=== PATIENT | male | born 1945 | race American Indian/Alaskan Native ===

== ENCOUNTER 2018-07-21 10:55 | Day surgery (SDC) | payer BC ==
[~2018-07-21 10:55] MED LIST: IOPIDINE ONE; MYDRIACYL ONE; NEOFRIN ONE
[2018-07-21] MEDS ORDERED: MYDRIACYL OD ONE (11:45)
[2018-07-21] MEDS ORDERED: IOPIDINE OD ONE ×2 (11:45→12:29)
[2018-07-21] MEDS ORDERED: NEOFRIN OD ONE (11:45)
[2018-07-21 12:10] VITALS: BP 143/78
== END 2018-07-21 12:32 | disposition home or self-care (01) ==
LOC: OR 10:55
PROVIDERS: ATTEND Specialist
DX: H26.491 Other secondary cataract, right eye (principal); E78.00 Pure hypercholesterolemia, unspecified; I10 Essential (primary) hypertension; G47.30 Sleep apnea, unspecified; K21.9 Gastro-esophageal reflux disease without esophagitis; E11.36 Type 2 diabetes mellitus with diabetic cataract; F41.9 Anxiety disorder, unspecified; Z79.899 Other long term (current) drug therapy; Z79.82 Long term (current) use of aspirin; Z98.49 Cataract extraction status, unspecified eye; Z85.46 Personal history of malignant neoplasm of prostate; Z98.890 Other specified postprocedural states; Z90.5 Acquired absence of kidney
CPT/HCPCS: 82962